=== PATIENT | female | born 1975 | race Caucasian/White ===

== ENCOUNTER 2016-06-13 16:24 | Emergency (ER) | payer OTHER ==
[~2016-06-13] VITALS: Ht 172.7 cm; Wt 68.0 kg
[~2016-06-13 16:24] MED LIST: OLAN5TAB3
[2016-06-13] MEDS ORDERED: LORAZEPAM INJ 2 MG/ML VIAL ONE (16:42)
[2016-06-13 16:58] LABS: BASOPHILS % (AUTO) 0.4 % (0.0-2.0); DIFF TOTAL % 100 %; EOSINOPHILS % (AUTO) 0.6 % (0.0-6.0); HEMATOCRIT 36 % (33-45); HEMOGLOBIN 12.1 g/dL (11.5-14.8); LYMPHOCYTES # (AUTO) 1.4 /CMM (0.8-4.8); LYMPHOCYTES % (AUTO) 22.6 % (20.0-44.0); MEAN CORPUSCULAR HEMOGLOBIN 29 PG (26.0-33.0); MEAN CORPUSCULAR HGB CONC 33 g/dl (31.0-36.0); MEAN CORPUSCULAR VOLUME 86 fL (82-100); MONOCYTES # (AUTO) 0.3 /CMM (0.1-1.30); MONOCYTES % (AUTO) 5.3 % (2.0-12.0); NEUTROPHILS # (AUTO) 4.3 /CMM (1.8-8.9); NEUTROPHILS % (AUTO) 71.1 % (43.0-81.0); PLATELET COUNT (AUTO) 370 /CMM (150-450); RED BLOOD CELL COUNT(AUTO) 4.21 MIL/uL (4.0-5.2)
[2016-06-13 17:00] LABS: ANION GAP 16 (5-14); CARBON DIOXIDE 25 mmol/L (21-32); CHLORIDE 105 mmol/L (98-107); CREATININE 0.7 mg/dL (0.6-1.3); GFR 94 mL/min (>60); GLUCOSE 111 mg/dL (74-106); POTASSIUM 3.4 mmol/L (3.5-5.1); SODIUM SERUM 143 mmol/L (136-145); UREA NITROGEN, BLOOD 10 mg/dL (7-18)
[2016-06-13] MEDS ORDERED: LORAZEPAM INJ 2 MG/ML VIAL IV ONE (17:00)
[2016-06-13 17:05] LABS: ALANINE AMINOTRANSFERASE 26 U/L (12-78); ALBUMIN 4.2 g/dL (3.4-5.0); ASPARTATE AMINOTRANSFERASE 24 U/L (15-37); BILIRUBIN,DIRECT 0.2 mg/dL (0.0-0.2); BILIRUBIN,TOTAL 0.9 mg/dL (0.2-1.0); INDIRECT BILIRUBIN 0.7 mg/dL (0.0-1.1); TOTAL PROTEIN, SERUM 7.3 g/dL (6.4-8.2)
[2016-06-13 17:06] LABS: ACETAMINOPHEN < 10 ug/ml (10-30); SALICYLATE < 2.8 mg/dL (2.8-20.0)
[2016-06-13 17:44] LABS: KETONES,URINE 15 (NEGATIVE); LEUKOCYTE ESTERASE ,URINE Negative (NEGATIVE)
[2016-06-13 17:46] LABS: ADD UA MICROSCOPIC YES
[2016-06-13 17:52] LABS: ADD URINE CULTURE NO; WBC,URINE 0-2 /HPF (0-3)
[2016-06-13 17:59] LABS: CANNABINOID, URINE NEGATIVE (NEGATIVE); PHENCYCLIDINE SCREEN,URINE NEGATIVE (NEGATIVE)
[2016-06-13 20:13] VITALS: BP 124/80
== END 2016-06-13 20:15 | disposition home or self-care (01) ==
LOC: ER 16:26
DX: F22 Delusional disorders (principal); F15.10 Other stimulant abuse, uncomplicated; F20.9 Schizophrenia, unspecified; R44.0 Auditory hallucinations; F17.200 Nicotine dependence, unspecified, uncomplicated
CPT/HCPCS: 36415; 76856; 80048; 80076; 80305; 80329; 81001; 84702; 84703; 85025; 93005; 96374; 99285; A4606; G0480 ×2; J2060; Z7610; 81000-TC; G6039-TC

== ENCOUNTER 2016-06-30 07:10 | Emergency (ER) | payer OTHER ==
[~2016-06-30] VITALS: Ht 177.8 cm; Wt 81.2 kg
[2016-06-30 07:14] VITALS: BP 143/89
[2016-06-30] MEDS ORDERED: IBUPROFEN 400 MG TABLET ONE (07:27)
[2016-06-30] MEDS ORDERED: IBUPROFEN 400 MG TABLET PO ONE (07:30)
== END 2016-06-30 07:32 | disposition home or self-care (01) ==
LOC: ER 07:12
DX: R51 Headache (principal); F15.10 Other stimulant abuse, uncomplicated; F20.9 Schizophrenia, unspecified; F17.200 Nicotine dependence, unspecified, uncomplicated
CPT/HCPCS: 99282; A4606; Z7610

== ENCOUNTER 2016-07-02 09:12 | Emergency (ER) | payer OTHER ==
[~2016-07-02] VITALS: Ht 177.8 cm; Wt 76.2 kg
[2016-07-02 14:02] LABS: CALCIUM, SERUM 8.4 mg/dL (8.5-10.1); CREATININE 0.6 mg/dL (0.6-1.3); POTASSIUM 3.8 mmol/L (3.5-5.1)
[2016-07-02 14:03] LABS: KETONES,URINE Negative (NEGATIVE); LEUKOCYTE ESTERASE ,URINE Negative (NEGATIVE)
[2016-07-02 14:05] LABS: ADD UA MICROSCOPIC YES
[2016-07-02 14:13] LABS: ALBUMIN 3.4 g/dL (3.4-5.0); BILIRUBIN,DIRECT 0.1 mg/dL (0.0-0.2); BILIRUBIN,TOTAL 0.3 mg/dL (0.2-1.0); INDIRECT BILIRUBIN 0.2 mg/dL (0.0-1.1); TOTAL PROTEIN, SERUM 6.3 g/dL (6.4-8.2)
[2016-07-02 14:15] LABS: WBC,URINE 0-2 /HPF (0-3)
[2016-07-02 14:16] LABS: ADD URINE CULTURE NO
[2016-07-02 14:23] LABS: BASOPHILS # (AUTO) 0.1 /CMM (0.0-0.2); BASOPHILS % (AUTO) 0.8 % (0.0-2.0); DIFF TOTAL % 100 %; EOSINOPHILS # (AUTO) 0.2 /CMM (0.0-0.7); EOSINOPHILS % (AUTO) 2.4 % (0.0-6.0); HEMATOCRIT 33 % (33-45); HEMOGLOBIN 11.1 g/dL (11.5-14.8); LYMPHOCYTES # (AUTO) 1.5 /CMM (0.8-4.8); LYMPHOCYTES % (AUTO) 22.8 % (20.0-44.0); MEAN CORPUSCULAR HEMOGLOBIN 29 PG (26.0-33.0); MEAN CORPUSCULAR HGB CONC 34 g/dl (31.0-36.0); MEAN CORPUSCULAR VOLUME 85 fL (82-100); MONOCYTES # (AUTO) 0.3 /CMM (0.1-1.30); MONOCYTES % (AUTO) 5.1 % (2.0-12.0); NEUTROPHILS # (AUTO) 4.4 /CMM (1.8-8.9); NEUTROPHILS % (AUTO) 68.9 % (43.0-81.0); PLATELET COUNT (AUTO) 350 /CMM (150-450); RED BLOOD CELL COUNT(AUTO) 3.89 MIL/uL (4.0-5.2); WHITE BLOOD COUNT (AUTO) 6.4 K/uL (4.3-11.0)
[2016-07-02 14:39] VITALS: BP 132/76
[2016-07-02 14:50] LABS: INR 0.94 (0.87-1.13); PROTHROMBIN TIME 10.2 SECS (9.5-12.7)
== END 2016-07-02 14:40 | disposition home or self-care (01) ==
LOC: ER 09:14
DX: N89.8 Other specified noninflammatory disorders of vagina (principal)
CPT/HCPCS: 36415; 80048; 80076; 81001; 84702; 84703; 85025; 85730; 86850; 87086; 99284; A4606; Z7610; 81000-TC

== ENCOUNTER 2016-07-09 08:20 | Emergency (ER) | payer OTHER ==
[~2016-07-09] VITALS: Ht 177.8 cm; Wt 77.1 kg
[2016-07-09 08:35] VITALS: BP 125/64
== END 2016-07-09 08:54 | disposition home or self-care (01) ==
LOC: ER 08:22
DX: L08.9 Local infection of the skin and subcutaneous tissue, unspecified (principal); F20.9 Schizophrenia, unspecified; B02.9 Zoster without complications; F17.200 Nicotine dependence, unspecified, uncomplicated
CPT/HCPCS: 99281; A4606; Z7610; Z7502

== ENCOUNTER 2017-04-08 21:01 | Emergency (ER) | payer OTHER ==
[~2017-04-08] VITALS: Ht 177.8 cm; Wt 72.6 kg
[2017-04-08 21:09] VITALS: BP 139/96
[2017-04-08] MEDS ORDERED: predniSONE 20 MG TABLET ONE (22:24)
[2017-04-08] MEDS ORDERED: diphenhydrAMINE HCL 50 MG CAPSULE ONE (22:24)
[2017-04-08] MEDS ORDERED: FAMOTIDINE (20 MG) 20 MG TABLET ONE (22:24)
[2017-04-08] MEDS ORDERED: IBUPROFEN 600 MG TABLET PO ONE (22:24)
[2017-04-08] MEDS: diphenhydrAMINE HCL 50 MG CAPSULE PO ONE (22:38)
[2017-04-08] MEDS: predniSONE 10 MG TABLET PO ONE (22:39)
[2017-04-08] MEDS: FAMOTIDINE (20 MG) 20 MG TABLET PO ONE (22:41)
[2017-04-08] MEDS: IBUPROFEN 600 MG TABLET PO ONE (22:42)
== END 2017-04-08 22:47 | disposition home or self-care (01) ==
LOC: ER 21:01
DX: L50.8 Other urticaria (principal); F28 Other psychotic disorder not due to a substance or known physiological condition; F20.9 Schizophrenia, unspecified; F15.10 Other stimulant abuse, uncomplicated; F17.200 Nicotine dependence, unspecified, uncomplicated; R00.0 Tachycardia, unspecified; Z98.82 Breast implant status
CPT/HCPCS: A4606; Q0163; Z7610

== ENCOUNTER 2017-04-28 07:33 | Emergency (ER) | payer OTHER ==
[~2017-04-28] VITALS: Ht 177.8 cm; Wt 77.6 kg
[2017-04-28 07:36] VITALS: BP 150/94
[2017-04-28] MEDS ORDERED: IBUPROFEN 600 MG TABLET PO ONE ×2 (07:58→08:00)
== END 2017-04-28 08:05 | disposition home or self-care (01) ==
LOC: ER 07:36
DX: K13.0 Diseases of lips (principal); B95.8 Unspecified staphylococcus as the cause of diseases classified elsewhere; F17.200 Nicotine dependence, unspecified, uncomplicated; Z98.82 Breast implant status
CPT/HCPCS: 99283; A4606; Z7610

== ENCOUNTER 2017-06-21 07:59 | Emergency (ER) | payer OTHER ==
[~2017-06-21] VITALS: Ht 177.8 cm; Wt 72.6 kg
[2017-06-21 08:08] VITALS: BP 129/99
== END 2017-06-21 09:41 | disposition home or self-care (01) ==
LOC: ER 08:00
DX: F42.4 Excoriation (skin-picking) disorder (principal); R11.0 Nausea; F20.9 Schizophrenia, unspecified; F17.200 Nicotine dependence, unspecified, uncomplicated; F10.10 Alcohol abuse, uncomplicated; Z98.82 Breast implant status
CPT/HCPCS: 99283; 99406; A4606; Z7610

== ENCOUNTER 2017-08-31 08:42 | Emergency (ER) | payer OTHER ==
[~2017-08-31] VITALS: Ht 177.8 cm; Wt 75.7 kg
[2017-08-31 08:50] VITALS: BP 134/81
[2017-08-31] MEDS ORDERED: diphenhydrAMINE HCL 25 MG CAPSULE PO ONE (09:30)
[2017-08-31] MEDS ORDERED: IBUPROFEN 600 MG TABLET PO ONE ×2 (09:30→09:32)
[2017-08-31] MEDS ORDERED: diphenhydrAMINE HCL 25 MG CAPSULE ONE (09:31)
== END 2017-08-31 10:06 | disposition home or self-care (01) ==
LOC: ER 08:48
DX: L98.9 Disorder of the skin and subcutaneous tissue, unspecified (principal); F20.9 Schizophrenia, unspecified; F10.10 Alcohol abuse, uncomplicated; F17.200 Nicotine dependence, unspecified, uncomplicated; Z41.1 Encounter for cosmetic surgery
CPT/HCPCS: 99283; A4606; Q0163; Z7610

== ENCOUNTER 2017-09-04 22:04 | Emergency (ER) | payer OTHER ==
[~2017-09-04] VITALS: Ht 177.8 cm; Wt 65.8 kg
[2017-09-04 22:20] VITALS: BP 135/68
== END 2017-09-04 23:07 | disposition home or self-care (01) ==
LOC: ER 22:06
DX: R21 Rash and other nonspecific skin eruption (principal); F10.10 Alcohol abuse, uncomplicated; F20.9 Schizophrenia, unspecified; F17.200 Nicotine dependence, unspecified, uncomplicated; Z41.1 Encounter for cosmetic surgery
CPT/HCPCS: 99283; A4606; Z7610

== ENCOUNTER 2017-10-11 14:18 | Emergency (ER) | payer OTHER ==
[~2017-10-11] VITALS: Ht 177.8 cm; Wt 78.0 kg
[2017-10-11 14:29] VITALS: BP 135/80
== END 2017-10-11 15:10 | disposition home or self-care (01) ==
LOC: ER 14:19
DX: M79.674 Pain in right toe(s) (principal); F20.9 Schizophrenia, unspecified; F17.200 Nicotine dependence, unspecified, uncomplicated; F10.10 Alcohol abuse, uncomplicated; Z98.82 Breast implant status
CPT/HCPCS: A4606; Z7610

== ENCOUNTER 2017-10-16 11:18 | Emergency (ER) | payer OTHER ==
[~2017-10-16] VITALS: Ht 177.8 cm; Wt 72.6 kg
[2017-10-16 11:22] VITALS: BP 174/107
== END 2017-10-16 12:15 | disposition home or self-care (01) ==
LOC: ER 11:21
DX: R23.8 Other skin changes (principal); R20.0 Anesthesia of skin; F20.9 Schizophrenia, unspecified; F17.200 Nicotine dependence, unspecified, uncomplicated; F10.10 Alcohol abuse, uncomplicated; Z98.86 Personal history of breast implant removal
CPT/HCPCS: A4606; Z7502; Z7610

== ENCOUNTER 2017-10-29 09:59 | Emergency (ER) | payer OTHER ==
[~2017-10-29] VITALS: Ht 182.9 cm; Wt 79.4 kg
[2017-10-29 10:06] VITALS: BP 131/83
== END 2017-10-29 10:15 | disposition home or self-care (01) ==
LOC: ER 10:01
DX: Z13.89 Encounter for screening for other disorder (principal); M79.674 Pain in right toe(s); F20.9 Schizophrenia, unspecified; F17.200 Nicotine dependence, unspecified, uncomplicated; B02.9 Zoster without complications; Z98.82 Breast implant status
CPT/HCPCS: 99281; A4606; Z7610; Z7502

== ENCOUNTER 2017-11-05 11:26 | Emergency (ER) | payer OTHER ==
[~2017-11-05] VITALS: Ht 182.9 cm; Wt 68.0 kg
[2017-11-05 11:34] VITALS: BP 137/105
== END 2017-11-05 11:50 | disposition home or self-care (01) ==
LOC: ER 11:28
DX: L73.8 Other specified follicular disorders (principal); F22 Delusional disorders; F20.9 Schizophrenia, unspecified; F17.200 Nicotine dependence, unspecified, uncomplicated; Z98.86 Personal history of breast implant removal
CPT/HCPCS: A4606; Z7610

== ENCOUNTER 2017-12-18 10:01 | Emergency (ER) | payer OTHER ==
[~2017-12-18] VITALS: Ht 177.8 cm; Wt 68.0 kg
[2017-12-18 10:13] VITALS: BP 164/99
--- NOTE | 2017-12-18 10:35 | NUR ---
DR COOK AT BEDSIDE FOR EVAL.
== END 2017-12-18 11:14 | disposition home or self-care (01) ==
LOC: ER 10:08
DX: N89.8 Other specified noninflammatory disorders of vagina (principal); F20.9 Schizophrenia, unspecified; Z41.1 Encounter for cosmetic surgery; F10.10 Alcohol abuse, uncomplicated; Y90.9 Presence of alcohol in blood, level not specified; F17.200 Nicotine dependence, unspecified, uncomplicated
CPT/HCPCS: 99283; A4606; Z7610

== ENCOUNTER 2018-01-31 07:19 | Emergency (ER) | payer OTHER ==
[~2018-01-31] VITALS: Ht 177.8 cm; Wt 79.4 kg
[2018-01-31 07:19] VITALS: BP 153/97
== END 2018-01-31 07:41 | disposition home or self-care (01) ==
LOC: ER 07:21
DX: R10.2 Pelvic and perineal pain (principal); F20.9 Schizophrenia, unspecified; F17.200 Nicotine dependence, unspecified, uncomplicated; Z98.82 Breast implant status
CPT/HCPCS: 99283; A4606; Z7610; Z7502

== ENCOUNTER 2018-02-23 13:57 | Emergency (ER) | payer OTHER ==
[~2018-02-23] VITALS: Ht 177.8 cm; Wt 77.7 kg
[2018-02-23 14:17] VITALS: BP 152/99
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
[2018-02-23] MEDS ORDERED: SULFAMETH/TRIMETH 800/160 MG 1 UDTAB TABLET PO ONE ×2 (15:00→15:10)
[2018-02-23] MEDS ORDERED: NAPROXEN 250 MG TABLET ONE (15:10)
[2018-02-23] MEDS: NAPROXEN 500 MG TABLET PO SCH ×2 (15:13→15:14)
--- NOTE | 2018-02-23 15:24 | NUR ---
TAYA TO PT. ACI WITH RX GIVEN. PT DISCHARGED HOME TO FOLLOW UP WITH PMD.ABRASION CLEANED AND DRESSED. PO MEDICATION G
== END 2018-02-23 15:27 | disposition home or self-care (01) ==
LOC: ER 14:02
DX: R22.1 Localized swelling, mass and lump, neck (principal); F20.9 Schizophrenia, unspecified; Z98.82 Breast implant status; Z60.2 Problems related to living alone
CPT/HCPCS: A4606; A6402; Z7610

== ENCOUNTER 2018-04-23 13:52 | Emergency (ER) | payer OTHER ==
[~2018-04-23] VITALS: Ht 180.3 cm; Wt 74.8 kg
[2018-04-23 14:16] VITALS: BP 134/74
[2018-04-23] MEDS ORDERED: IBUPROFEN 600 MG TABLET PO ONE ×2 (14:30)
== END 2018-04-23 15:43 | disposition home or self-care (01) ==
LOC: ER 13:57
DX: M79.672 Pain in left foot (principal); F20.9 Schizophrenia, unspecified; B02.9 Zoster without complications; F10.10 Alcohol abuse, uncomplicated; Y90.9 Presence of alcohol in blood, level not specified; Z41.1 Encounter for cosmetic surgery; Z60.2 Problems related to living alone
CPT/HCPCS: 73630-TC; A4606; Z7610

== ENCOUNTER 2018-05-26 10:47 | Emergency (ER) | payer OTHER ==
[~2018-05-26] VITALS: Ht 177.8 cm; Wt 79.4 kg
[2018-05-26 10:54] VITALS: BP 147/92
== END 2018-05-26 13:00 | disposition home or self-care (01) ==
LOC: ER 10:50
DX: S90.121A Contusion of right lesser toe(s) without damage to nail, initial encounter (principal); F20.9 Schizophrenia, unspecified; Z98.890 Other specified postprocedural states; Z60.2 Problems related to living alone; Z79.899 Other long term (current) drug therapy; W22.8XXA Striking against or struck by other objects, initial encounter; Y93.89 Activity, other specified; Y92.89 Other specified places as the place of occurrence of the external cause; Y99.8 Other external cause status
CPT/HCPCS: 73660-TC

== ENCOUNTER 2018-09-26 11:22 | Emergency (ER) ==
[~2018-09-26] VITALS: Ht 180.3 cm; Wt 81.6 kg
[2018-09-26 11:28] VITALS: BP 140/100
== END 2018-09-26 11:53 | disposition home or self-care (01) ==
LOC: ER 11:25
DX: M79.674 Pain in right toe(s) (principal); F10.10 Alcohol abuse, uncomplicated; Y90.9 Presence of alcohol in blood, level not specified; Z59.0 Homelessness; Z41.1 Encounter for cosmetic surgery

== ENCOUNTER 2018-11-08 08:28 | Emergency (ER) | payer OTHER ==
[~2018-11-08] VITALS: Ht 185.4 cm; Wt 74.8 kg
[2018-11-08 08:36] VITALS: BP 134/81
[2018-11-08] MEDS ORDERED: IBUPROFEN 600 MG TABLET PO ONE ×2 (09:20→09:30)
== END 2018-11-08 09:33 | disposition home or self-care (01) ==
LOC: ER 08:31
DX: S76.011A Strain of muscle, fascia and tendon of right hip, initial encounter (principal); Z98.890 Other specified postprocedural states; Z59.0 Homelessness; X58.XXXA Exposure to other specified factors, initial encounter; Y93.89 Activity, other specified; Y92.89 Other specified places as the place of occurrence of the external cause; Y99.8 Other external cause status
CPT/HCPCS: 73502

== ENCOUNTER 2018-11-16 10:21 | Emergency (ER) | payer OTHER ==
[~2018-11-16] VITALS: Ht 177.8 cm; Wt 81.2 kg
[2018-11-16 10:36] VITALS: BP 134/96
== END 2018-11-16 11:34 | disposition home or self-care (01) ==
LOC: ER 10:25
DX: B07.0 Plantar wart (principal); Z98.890 Other specified postprocedural states; Z59.0 Homelessness

== ENCOUNTER 2018-11-18 11:04 | Emergency (ER) | payer OTHER ==
[~2018-11-18] VITALS: Ht 177.8 cm; Wt 81.6 kg
[2018-11-18 11:05] VITALS: BP 130/90
== END 2018-11-18 11:37 | disposition home or self-care (01) ==
LOC: ER 11:04
DX: M79.674 Pain in right toe(s) (principal); Z98.890 Other specified postprocedural states; Z59.0 Homelessness
CPT/HCPCS: 82962-TC

== ENCOUNTER 2018-11-28 12:50 | Emergency (ER) | payer OTHER ==
[~2018-11-28] VITALS: Ht 177.8 cm; Wt 81.6 kg
[2018-11-28 13:04] VITALS: BP 124/88
== END 2018-11-28 13:53 | disposition home or self-care (01) ==
LOC: ER 12:53
DX: T25.231A Burn of second degree of right toe(s) (nail), initial encounter (principal); B35.3 Tinea pedis; F29 Unspecified psychosis not due to a substance or known physiological condition; F10.10 Alcohol abuse, uncomplicated; F14.10 Cocaine abuse, uncomplicated; Y90.9 Presence of alcohol in blood, level not specified; Z41.1 Encounter for cosmetic surgery; Z59.0 Homelessness; X08.8XXA Exposure to other specified smoke, fire and flames, initial encounter; Y93.89 Activity, other specified; Y92.89 Other specified places as the place of occurrence of the external cause; Y99.8 Other external cause status

== ENCOUNTER 2018-12-30 18:14 | Emergency (ER) | payer OTHER ==
[~2018-12-30] VITALS: Ht 177.8 cm; Wt 82.1 kg
[2018-12-30 18:35] VITALS: BP 165/99
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
[2018-12-30] MEDS ORDERED: TDAP [DIPH/PERTUSSIS/TET] 0.5 ML VIAL IM ONE (18:49)
[2018-12-30] MEDS: TDAP [DIPH/PERTUSSIS/TET] 0.5 ML VIAL IM ONE (18:53)
== END 2018-12-30 19:01 | disposition home or self-care (01) ==
LOC: ER 18:20
DX: S90.414A Abrasion, right lesser toe(s), initial encounter (principal); Z98.890 Other specified postprocedural states; Z59.0 Homelessness; W26.8XXA Contact with other sharp object(s), not elsewhere classified, initial encounter; Y93.89 Activity, other specified; Y92.89 Other specified places as the place of occurrence of the external cause; Y99.8 Other external cause status
CPT/HCPCS: 90715

== ENCOUNTER 2019-01-11 17:49 | Emergency (ER) | payer OTHER ==
[~2019-01-11] VITALS: Ht 177.8 cm; Wt 81.6 kg
[2019-01-11 17:50] VITALS: BP 140/89
[2019-01-11] MEDS ORDERED: ACETAMINOPHEN 325 MG TABLET PO ONE (18:30)
[2019-01-11] MEDS ORDERED: ACETAMINOPHEN 325 MG TABLET ONE (18:51)
== END 2019-01-11 19:22 | disposition home or self-care (01) ==
LOC: ER 17:49
DX: S00.83XA Contusion of other part of head, initial encounter (principal); F10.10 Alcohol abuse, uncomplicated; F20.9 Schizophrenia, unspecified; Z98.890 Other specified postprocedural states; Z60.2 Problems related to living alone; X58.XXXA Exposure to other specified factors, initial encounter; Y93.89 Activity, other specified; Y92.89 Other specified places as the place of occurrence of the external cause; Y99.8 Other external cause status; Y90.9 Presence of alcohol in blood, level not specified
CPT/HCPCS: 70450-TC; 70486-TC

== ENCOUNTER 2019-01-18 07:41 | Emergency (ER) | payer OTHER ==
[~2019-01-18] VITALS: Ht 177.8 cm; Wt 81.2 kg
[2019-01-18] MEDS ORDERED: LORAZEPAM 1 MG TABLET ONE (08:20)
[2019-01-18] MEDS ORDERED: LORAZEPAM 1 MG TABLET PO ONE (08:30)
--- NOTE | 2019-01-18 08:41 | NUR ---
PATIENT AWAKE ALERT AMBULATORY DEMEANDING UNABLE TO WAIT INSTRUCTED TO WAIT IN THE ROOM
--- NOTE | 2019-01-18 08:44 | NUR ---
DC HOME INTRUCTIONS GIVEN AGREES TO CALL PMD IN 2 DAYS VERBALIZED UNDERSTNDING
[2019-01-18 08:50] VITALS: BP 123/67
== END 2019-01-18 08:50 | disposition home or self-care (01) ==
LOC: ER 07:47
DX: F41.9 Anxiety disorder, unspecified (principal); F10.10 Alcohol abuse, uncomplicated; F14.10 Cocaine abuse, uncomplicated; Y90.9 Presence of alcohol in blood, level not specified; Z41.1 Encounter for cosmetic surgery; Z60.2 Problems related to living alone

== ENCOUNTER 2019-06-09 15:36 | Emergency (ER) | payer OTHER ==
[~2019-06-09] VITALS: Ht 177.8 cm; Wt 88.5 kg
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
[2019-06-09] MEDS ORDERED: IBUPROFEN 400 MG TABLET ONE (16:15)
[2019-06-09] MEDS ORDERED: IBUPROFEN 400 MG TABLET PO ONE (16:30)
[2019-06-09 16:33] VITALS: BP 145/81
--- NOTE | 2019-06-09 16:34 | NUR ---
Patient discharged to home in stable condition. Written and verbal after care instructions given. Patient verbalizes understanding of instruction.
== END 2019-06-09 16:34 | disposition home or self-care (01) ==
LOC: ER 15:46
DX: S13.4XXA Sprain of ligaments of cervical spine, initial encounter (principal); Z98.890 Other specified postprocedural states; Z88.6 Allergy status to analgesic agent; Z60.2 Problems related to living alone; Z79.899 Other long term (current) drug therapy; V49.59XA Passenger injured in collision with other motor vehicles in traffic accident, initial encounter; Y93.89 Activity, other specified; Y92.413 State road as the place of occurrence of the external cause; Y99.8 Other external cause status

== ENCOUNTER 2019-12-16 15:20 | Emergency (ER) | payer OTHER ==
[~2019-12-16] VITALS: Ht 177.8 cm; Wt 72.6 kg
--- NOTE | 2019-12-16 15:35 | NUR ---
Patient came in to the er c/o hearing voices denies SI or HI. On room air, breathing evenly and unlabored. connected to the monitor and pulse ox. kept comfortable, will continue to monitor accordingly.
--- NOTE | 2019-12-16 15:36 | NUR ---
dr ramirez at bedside for eval.
--- NOTE | 2019-12-16 16:47 | NUR ---
provided w/ vegetarian lunch tray.
[2019-12-16 16:49] VITALS: BP 140/77
--- NOTE | 2019-12-16 16:50 | NUR ---
Patient discharged to home in stable condition. Written and verbal after care instructions given. Patient verbalizes understanding of instruction.
== END 2019-12-16 16:50 | disposition home or self-care (01) ==
LOC: ER 15:31
DX: R44.0 Auditory hallucinations (principal); T43.295A Adverse effect of other antidepressants, initial encounter; Z98.890 Other specified postprocedural states; Z88.6 Allergy status to analgesic agent; Z60.2 Problems related to living alone; Z79.899 Other long term (current) drug therapy; Y92.89 Other specified places as the place of occurrence of the external cause

== ENCOUNTER 2020-05-31 12:10 | Emergency (ER) | payer OTHER ==
[~2020-05-31] VITALS: Ht 172.7 cm; Wt 70.3 kg
[2020-05-31 12:29] VITALS: BP 132/88
--- NOTE | 2020-05-31 12:33 | NUR ---
Pt eloped prior to discharge instructions
== END 2020-05-31 12:35 | disposition home or self-care (01) ==
LOC: ER 12:15
DX: R51.9 Headache, unspecified (principal); Z98.890 Other specified postprocedural states; Z88.6 Allergy status to analgesic agent; Z60.2 Problems related to living alone; Z79.899 Other long term (current) drug therapy

== ENCOUNTER 2021-01-06 13:41 | Emergency (ER) | payer OTHER ==
[~2021-01-06] VITALS: Ht 172.7 cm; Wt 68.0 kg
--- NOTE | 2021-01-06 13:50 | NUR ---
THE PATIENT BIBS FOR "I NEED PSYCH MEDS. I'M DEPRESSED AND KEEP TALKING OUT LOUD". ALERT AND ORIENTED X4. DENIES SI/HI. RESPIRATION REGULAR AND UNLABORED. DENIES PAIN. WILL CONTINUE TO MONITOR THE PATIENT.
[2021-01-06] MEDS ORDERED: SERT50TA PO (15:16)
--- NOTE | 2021-01-06 15:23 | NUR ---
Patient discharged to home in stable condition. Written and verbal after care instructions given. Patient verbalizes understanding of instruction.
[2021-01-06 15:24] VITALS: BP 122/67
== END 2021-01-06 15:24 | disposition home or self-care (01) ==
LOC: ER 13:44
DX: F41.9 Anxiety disorder, unspecified (principal); F10.10 Alcohol abuse, uncomplicated; Y90.9 Presence of alcohol in blood, level not specified; Z41.1 Encounter for cosmetic surgery; Z88.6 Allergy status to analgesic agent; Z88.5 Allergy status to narcotic agent; Z60.2 Problems related to living alone

== ENCOUNTER 2021-01-15 10:08 | Emergency (ER) | payer OTHER ==
[~2021-01-15] VITALS: Ht 177.8 cm; Wt 67.6 kg
[2021-01-15 10:08] VITALS: BP 115/82
[~2021-01-15 10:08] MED LIST changes: +SERT50TA PO
--- NOTE | 2021-01-15 10:17 | NUR ---
TO ER BED 2, C/O BILATERAL LOWER EXTREMITY NUMBNESS FOR 1 MONTH, AAOX4, BREATHING EVEN AND UNLABORED
== END 2021-01-15 10:19 | disposition home or self-care (01) ==
LOC: ER 10:13
DX: L84 Corns and callosities (principal); Z98.890 Other specified postprocedural states; Z88.6 Allergy status to analgesic agent; Z60.2 Problems related to living alone; Z79.899 Other long term (current) drug therapy

== ENCOUNTER 2021-01-20 17:20 | Emergency (ER) | payer OTHER ==
[~2021-01-20] VITALS: Ht 170.2 cm; Wt 71.2 kg
--- NOTE | 2021-01-20 17:39 | NUR ---
PATIENT BIB SELF R HIP PAIN X 1 MON. DENIES INJURY. NO RESPIRATORY DISTRESS NOTED. PATIENT ABLE TO AMBULATE. PATIENT ALERT AND ORIENTED X4. AWAITING MD WANG.
--- NOTE | 2021-01-20 17:52 | NUR ---
URINE COLLECTED AND SENT TO LAB
[2021-01-20] MEDS ORDERED: IBUPROFEN 600 MG TABLET ONE (17:56)
[2021-01-20] MEDS ORDERED: IBUPROFEN 600 MG TABLET PO ONE (18:00)
[2021-01-20] MEDS ORDERED: IBUP-1955 PO (19:04)
--- NOTE | 2021-01-20 19:13 | NUR ---
Patient discharged to home in stable condition. rx Written and verbal after care instructions given. Patient verbalizes understanding of instruction. pt ambulatory with a steady gait. pt a/ox4
[2021-01-20 19:15] VITALS: BP 128/87
== END 2021-01-20 19:16 | disposition home or self-care (01) ==
LOC: ER 17:45
DX: M25.551 Pain in right hip (principal); F10.10 Alcohol abuse, uncomplicated; Y90.9 Presence of alcohol in blood, level not specified; Z41.1 Encounter for cosmetic surgery; Z88.6 Allergy status to analgesic agent; Z88.5 Allergy status to narcotic agent; Z60.2 Problems related to living alone; Z79.899 Other long term (current) drug therapy
CPT/HCPCS: 73502; 84703-TC

== ENCOUNTER 2021-03-07 15:49 | Emergency (ER) | payer OTHER ==
[~2021-03-07] VITALS: Ht 177.8 cm; Wt 70.3 kg
[~2021-03-07 15:49] MED LIST changes: +IBUP-1955 PO; -SERT50TA PO
[2021-03-07 15:56] VITALS: BP 132/65
[2021-03-07] MEDS ORDERED: SERT50TA PO (16:31)
--- NOTE | 2021-03-07 17:00 | NUR ---
Patient discharged to home in stable condition. Written and verbal after care instructions given. Patient verbalizes understanding of instruction.
== END 2021-03-07 17:00 | disposition home or self-care (01) ==
LOC: ER 15:52
DX: Z76.0 Encounter for issue of repeat prescription (principal); Z98.890 Other specified postprocedural states; Z88.6 Allergy status to analgesic agent; Z60.2 Problems related to living alone; Z79.899 Other long term (current) drug therapy

== ENCOUNTER 2021-05-03 22:23 | Emergency (ER) | payer OTHER ==
[~2021-05-03] VITALS: Ht 177.8 cm; Wt 68.0 kg
[~2021-05-03 22:23] MED LIST changes: +SERT50TA PO
[2021-05-03 22:41] VITALS: BP 147/72
== END 2021-05-04 00:20 | disposition home or self-care (01) ==
LOC: ER 22:23
DX: R51.9 Headache, unspecified (principal); Z98.890 Other specified postprocedural states; Z88.6 Allergy status to analgesic agent; Z60.2 Problems related to living alone; Z79.899 Other long term (current) drug therapy
CPT/HCPCS: 70450-TC

== ENCOUNTER 2021-05-19 09:29 | Emergency (ER) | payer OTHER ==
[~2021-05-19] VITALS: Ht 185.4 cm; Wt 68.0 kg
[2021-05-19 09:55] VITALS: BP 129/88
[2021-05-19] MEDS ORDERED: SERT25TA PO (10:08)
== END 2021-05-19 10:44 | disposition home or self-care (01) ==
LOC: ER 09:33
DX: F41.9 Anxiety disorder, unspecified (principal); Z76.0 Encounter for issue of repeat prescription; Z98.890 Other specified postprocedural states; Z88.6 Allergy status to analgesic agent; Z60.2 Problems related to living alone; Z79.899 Other long term (current) drug therapy

== ENCOUNTER 2021-05-22 09:04 | Emergency (ER) | payer OTHER ==
[~2021-05-22] VITALS: Ht 177.8 cm; Wt 71.7 kg
[~2021-05-22 09:04] MED LIST changes: +SERT25TA PO
[2021-05-22 09:19] VITALS: BP 136/91
[2021-05-22] MEDS ORDERED: CLOB15OI3 TP (09:34)
[2021-05-22] MEDS ORDERED: diphenhydrAMINE HCL 50 MG CAPSULE ONE (09:41)
[2021-05-22] MEDS ORDERED: predniSONE 20 MG TABLET ONE (09:41)
--- NOTE | 2021-05-22 09:46 | NUR ---
Patient discharged to home in stable condition. Written and verbal after care instructions given. Patient verbalizes understanding of instruction.
[2021-05-22] MEDS ORDERED: diphenhydrAMINE HCL 50 MG CAPSULE PO ONE (10:00)
[2021-05-22] MEDS ORDERED: predniSONE 10 MG TABLET PO ONE (10:00)
== END 2021-05-22 09:46 | disposition home or self-care (01) ==
LOC: ER 09:08
DX: L21.0 Seborrhea capitis (principal); Z98.890 Other specified postprocedural states; Z88.6 Allergy status to analgesic agent; Z60.2 Problems related to living alone; Z79.899 Other long term (current) drug therapy
CPT/HCPCS: 99283; J7512 ×2; Q0163

== ENCOUNTER 2021-06-08 06:13 | Emergency (ER) | payer OTHER ==
[~2021-06-08] VITALS: Ht 177.8 cm; Wt 72.1 kg
[~2021-06-08 06:13] MED LIST changes: +CLOB15OI3 TP
--- NOTE | 2021-06-08 06:45 | NUR ---
PT BIBS FROM HOME FOR C/O "I'M ANXIOUS, I WANNA KNOW IF I'M OR NOT" PT A/OX4. TOLERATING R/A WELL WITH NO SOB.
--- NOTE | 2021-06-08 06:48 | NUR ---
PT SEEN BY DR. LAW HENDERSON
--- NOTE | 2021-06-08 06:51 | NUR ---
URINE COLLECTED AND SENT TO LAB
[2021-06-08] MEDS ORDERED: SUMA100T PO (08:54)
[2021-06-08] MEDS ORDERED: IBUP-1957 PO (08:54)
[2021-06-08] MEDS ORDERED: PROCHLORPERAZINE EDISYLATE 10 MG/2 ML VIAL ONE (08:57)
[2021-06-08] MEDS ORDERED: SUMATRIPTAN SUCCINATE 6 MG/0.5 ML VIAL SQ ONE (08:57)
[2021-06-08] MEDS ORDERED: KETOROLAC TROMETHAMINE INJ 30 MG/ML VIAL ONE (08:58)
[2021-06-08] MEDS: KETOROLAC TROMETHAMINE INJ 30 MG/ML VIAL IM ONE (09:08)
[2021-06-08] MEDS: PROCHLORPERAZINE EDISYLATE 10 MG/2 ML VIAL IM ONE (09:08)
[2021-06-08] MEDS: SUMATRIPTAN SUCCINATE 6 MG/0.5 ML VIAL SQ ONE (09:08)
--- NOTE | 2021-06-08 09:24 | NUR ---
Patient discharged to home in stable condition. Written and verbal after care instructions given. Patient verbalizes understanding of instruction.Patient was given printed prescriptions.
[2021-06-08 09:25] VITALS: BP 138/75
== END 2021-06-08 09:26 | disposition home or self-care (01) ==
LOC: ER 06:13
DX: Z32.02 Encounter for pregnancy test, result negative (principal); R51.9 Headache, unspecified; Z98.890 Other specified postprocedural states; Z88.6 Allergy status to analgesic agent; Z59.00 Homelessness unspecified; Z79.899 Other long term (current) drug therapy
CPT/HCPCS: 84703; 96372 ×2; 99284; J0780; J1885; J3030

== ENCOUNTER 2021-07-20 14:27 | Emergency (ER) | payer OTHER ==
[~2021-07-20] VITALS: Ht 177.8 cm; Wt 74.4 kg
[~2021-07-20 14:27] MED LIST changes: +IBUP-1957 PO; +SUMA100T PO
--- NOTE | 2021-07-20 14:39 | NUR ---
TO ER BED 14. HEADACHE "CRACKING SOUND" AND "BLOOD TASTE TO ROOF OF MOUTH X 3 MONTHS DENIES ANY RECENT HEAD INJURY.
--- NOTE | 2021-07-20 16:22 | NUR ---
APS Report made for self-neglect regarding medical care. APS Intake #[id number]
--- NOTE | 2021-07-20 16:30 | NUR ---
PT SEEN AND EVALUATED BY TALA MCFARLANE. VERBALLY DISCHARGE IN STABLE CONDITION.
[2021-07-20 17:16] VITALS: BP 135/84
== END 2021-07-20 16:30 | disposition home or self-care (01) ==
LOC: ER 14:28
DX: F23 Brief psychotic disorder (principal); Z59.00 Homelessness unspecified; Z79.1 Long term (current) use of non-steroidal anti-inflammatories (NSAID); Z79.899 Other long term (current) drug therapy; Z98.82 Breast implant status; Z88.6 Allergy status to analgesic agent; Z88.5 Allergy status to narcotic agent; Z86.14 Personal history of Methicillin resistant Staphylococcus aureus infection; Z86.19 Personal history of other infectious and parasitic diseases

== ENCOUNTER 2021-07-31 09:59 | Emergency (ER) | payer OTHER ==
[~2021-07-31] VITALS: Ht 177.8 cm; Wt 76.7 kg
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
--- NOTE | 2021-07-31 10:41 | NUR ---
SEEN AND EXAMINED BY .
--- NOTE | 2021-07-31 10:50 | NUR ---
URINE SPECIMEN COLLECTED AND SENT TO LAB.
--- NOTE | 2021-07-31 10:53 | NUR ---
ER PHLEB AT BEDSIDE FOR BLOOD DRAW.
[2021-07-31 11:05] LABS: BASOPHILS % (AUTO) 1.2 % (0.0-2.0); EOSINOPHILS % (AUTO) 1.8 % (0.0-6.0); HEMATOCRIT 30 % (33-45); HEMOGLOBIN 9.2 g/dL (11.5-14.8); LYMPHOCYTES # (AUTO) 1.1 K/uL (0.8-4.8); LYMPHOCYTES % (AUTO) 35.5 % (20.0-44.0); MEAN CORPUSCULAR HGB CONC 30 g/dl (31.0-36.0); MEAN CORPUSCULAR VOLUME 65 fL (82-100); MONOCYTES # (AUTO) 0.2 K/uL (0.1-1.30); MONOCYTES % (AUTO) 6.6 % (2.0-12.0); NEUTROPHILS # (AUTO) 1.7 K/uL (1.8-8.9); NEUTROPHILS % (AUTO) 54.9 % (43.0-81.0); PLATELET COUNT (AUTO) 406 K/uL (150-450); RED BLOOD CELL COUNT(AUTO) 4.68 MIL/uL (4.0-5.2); WHITE BLOOD COUNT (AUTO) 3.2 K/uL (4.3-11.0)
[2021-07-31 11:22] LABS: BILIRUBIN,URINE NEGATIVE (NEGATIVE); COLOR,URINE YELLOW (YELLOW); LEUKOCYTE ESTERASE ,URINE NEGATIVE (NEGATIVE); NITRITE, URINE NEGATIVE (NEGATIVE); PROTEIN,URINE NEGATIVE (NEGATIVE); UGLUCOSE NEGATIVE (NEGATIVE); UROBILINOGEN,URINE 0.2 EU/dL (0.2)
[2021-07-31 11:31] LABS: ALANINE AMINOTRANSFERASE 26 U/L (12-78); ALBUMIN 4.1 g/dL (3.4-5.0); ALCOHOL, BLOOD < 3 mg/dL (0-0); ALKALINE PHOSPHATASE 52 U/L (46-116); ASPARTATE AMINOTRANSFERASE 20 U/L (15-37); BILIRUBIN,DIRECT 0.2 mg/dL (0.0-0.2); BILIRUBIN,TOTAL 0.7 mg/dL (0.2-1.0); CALCIUM, SERUM 9.1 mg/dL (8.5-10.1); CARBON DIOXIDE 29 mmol/L (21-32); CHLORIDE 105 mmol/L (98-107); CREATININE 0.7 mg/dL (0.6-1.3); GLUCOSE 87 mg/dL (74-106); POTASSIUM 3.6 mmol/L (3.5-5.1); SODIUM SERUM 139 mmol/L (136-145); TOTAL PROTEIN, SERUM 7.3 g/dL (6.4-8.2); UREA NITROGEN, BLOOD 10 mg/dL (7-18)
[2021-07-31 11:34] LABS: ACETAMINOPHEN 0 ug/ml (10-30)
[2021-07-31 11:36] LABS: RBC,URINE NONE SEEN /HPF (0-2); WBC,URINE 0-2 /HPF (0-3)
[2021-07-31 11:37] LABS: BACTERIA,URINE None seen /HPF (None Seen); SQUAMOUS EPITHELIAL CELL,UR 0-2 /HPF (None Seen); YEAST,URINE Few /HPF (None Seen)
[2021-07-31 12:39] LABS: EOSINOPHILS % (MANUAL) 3 % (0-4); LYMPHOCYTES % (MANUAL) 35 % (16-48); METAMYELOCYTES % 2 % (0-0); MONOCYTES % (MANUAL) 5 % (0-11.0); MYELOCYTES % 2 % (0-0); NEUTROPHILS % (MANUAL) 53 (42-76)
[2021-07-31 13:30] VITALS: BP 128/71
--- NOTE | 2021-07-31 14:00 | NUR ---
Patient eloped from facility. ER MD notified.
== END 2021-07-31 14:00 | disposition left against medical advice (07) ==
LOC: ER 10:01
DX: R46.1 Bizarre personal appearance (principal); Z86.19 Personal history of other infectious and parasitic diseases; Z98.82 Breast implant status; Z88.6 Allergy status to analgesic agent; Z88.5 Allergy status to narcotic agent; Z60.2 Problems related to living alone; Z79.1 Long term (current) use of non-steroidal anti-inflammatories (NSAID); Z79.899 Other long term (current) drug therapy
CPT/HCPCS: 36415; 80048-TC; 80076-TC; 81001; 85025-TC; G0480

== ENCOUNTER 2021-11-07 19:17 | Emergency (ER) | payer OTHER ==
[~2021-11-07] VITALS: Ht 177.8 cm; Wt 71.7 kg
[2021-11-07 19:30] VITALS: BP 144/74
== END 2021-11-07 20:58 | disposition home or self-care (01) ==
LOC: ER 19:20
DX: F32.A Depression, unspecified (principal); Z59.00 Homelessness unspecified; Z98.86 Personal history of breast implant removal; Z88.8 Allergy status to other drugs, medicaments and biological substances; Z60.2 Problems related to living alone; Z79.899 Other long term (current) drug therapy

== ENCOUNTER 2021-11-27 20:34 | Emergency (ER) | payer OTHER ==
[~2021-11-27] VITALS: Ht 177.8 cm; Wt 74.8 kg
[2021-11-27 20:34] VITALS: BP 157/97
[2021-11-27] MEDS ORDERED: KETOROLAC TROMETHAMINE INJ 30 MG/ML VIAL ONE (21:07)
[2021-11-27] MEDS: KETOROLAC TROMETHAMINE INJ 60 MG/2 ML VIAL IM ONE (21:10)
== END 2021-11-27 21:20 | disposition home or self-care (01) ==
LOC: ER 20:36
DX: R51.9 Headache, unspecified (principal); Z98.890 Other specified postprocedural states; Z88.6 Allergy status to analgesic agent; Z60.2 Problems related to living alone; Z79.899 Other long term (current) drug therapy
CPT/HCPCS: 99283; 96372; J1885

== ENCOUNTER 2022-01-01 09:26 | Emergency (ER) | payer OTHER ==
[~2022-01-01] VITALS: Ht 177.8 cm; Wt 72.1 kg
[2022-01-01 09:41] VITALS: BP 145/121
--- NOTE | 2022-01-01 09:42 | NUR ---
BIBS W/ C/O ANXIETY X1WK; PT WANTS MED REFILL.
[2022-01-01] MEDS ORDERED: OLAN5TAB3 PO (09:50)
--- NOTE | 2022-01-01 10:43 | NUR ---
Patient discharged to home in stable condition. Written and verbal after care instructions given. Patient verbalizes understanding of instruction.
== END 2022-01-01 10:44 | disposition home or self-care (01) ==
LOC: ER 09:30
DX: F29 Unspecified psychosis not due to a substance or known physiological condition (principal); Z76.0 Encounter for issue of repeat prescription; F41.9 Anxiety disorder, unspecified; Z98.890 Other specified postprocedural states; Z88.6 Allergy status to analgesic agent; Z60.2 Problems related to living alone; Z79.899 Other long term (current) drug therapy

== ENCOUNTER 2022-01-07 18:45 | Emergency (ER) | payer OTHER ==
[~2022-01-07] VITALS: Ht 177.8 cm; Wt 70.3 kg
[~2022-01-07 18:45] MED LIST changes: +OLAN5TAB3 PO
[2022-01-07 18:48] VITALS: BP 125/86
--- NOTE | 2022-01-07 18:48 | NUR ---
DYSURIA X 7 DAYS. PT A/OX4. TOLERATING R/A WELL WITH NO SOB. AMB WITH NO STEADY GAIT. SAFETY MEASURES IN PLACE.
--- NOTE | 2022-01-07 18:50 | NUR ---
URINE SAMPLE SENT TO LAB
[2022-01-07 19:40] LABS: BILIRUBIN,URINE NEGATIVE (NEGATIVE); COLOR,URINE YELLOW (YELLOW); LEUKOCYTE ESTERASE ,URINE NEGATIVE (NEGATIVE); NITRITE, URINE NEGATIVE (NEGATIVE); PH,URINE 6.5 (5.0-8.0); PROTEIN,URINE NEGATIVE (NEGATIVE); UGLUCOSE NEGATIVE (NEGATIVE)
[2022-01-07 20:15] LABS: BACTERIA,URINE 2+ /HPF (None Seen); RBC,URINE 0-2 /HPF (0-2); WBC,URINE 0-2 /HPF (0-3)
[2022-01-07 20:16] LABS: MUCUS,URINE Few /LPF (None Seen)
[2022-01-07] MEDS ORDERED: NITR100C6 PO (20:50)
--- NOTE | 2022-01-07 20:54 | NUR ---
Patient discharged to home in stable condition. Written and verbal after care instructions given. Patient verbalizes understanding of instruction.
== END 2022-01-07 20:54 | disposition home or self-care (01) ==
LOC: ER 18:48
DX: R30.0 Dysuria (principal); Z41.1 Encounter for cosmetic surgery; Z88.6 Allergy status to analgesic agent; Z60.2 Problems related to living alone
CPT/HCPCS: 81001; 87086-TC; 87186-TC

== ENCOUNTER 2022-02-28 23:41 | Emergency (ER) | payer OTHER ==
[~2022-02-28] VITALS: Ht 177.8 cm; Wt 72.6 kg
[~2022-02-28 23:41] MED LIST changes: +NITR100C6 PO
--- NOTE | 2022-03-01 01:33 | NUR ---
Patient discharged to home in stable condition. Written and verbal after care instructions given. Patient verbalizes understanding of instruction.
--- NOTE | 2022-03-01 01:33 | NUR ---
Patient discharged to home in stable condition. Written and verbal after care instructions given. Patient verbalizes understanding of instruction.
[2022-03-01 01:34] VITALS: BP 140/70
== END 2022-03-01 01:34 | disposition home or self-care (01) ==
LOC: ER 23:42
DX: S09.90XA Unspecified injury of head, initial encounter (principal); F41.9 Anxiety disorder, unspecified; Z98.82 Breast implant status; Z88.8 Allergy status to other drugs, medicaments and biological substances; Z60.2 Problems related to living alone; Z79.899 Other long term (current) drug therapy; W22.8XXA Striking against or struck by other objects, initial encounter; Y93.89 Activity, other specified; Y92.89 Other specified places as the place of occurrence of the external cause; Y99.8 Other external cause status
CPT/HCPCS: 70450-TC

== ENCOUNTER 2022-03-03 10:25 | Emergency (ER) | payer OTHER ==
[~2022-03-03] VITALS: Ht 177.8 cm; Wt 75.7 kg
[2022-03-03 10:38] VITALS: BP 151/104
--- NOTE | 2022-03-03 10:38 | NUR ---
R foot pain x 3 days, denies any recent injury. foot fissures noted
[2022-03-03] MEDS ORDERED: IBUP-1955 PO (11:57)
[2022-03-03] MEDS ORDERED: IBUPROFEN 600 MG TABLET ONE (12:00)
[2022-03-03] MEDS: IBUPROFEN 600 MG TABLET PO ONE (12:01)
--- NOTE | 2022-03-03 12:10 | NUR ---
Patient discharged to home in stable condition. Written and verbal after care instructions given. Patient verbalizes understanding of instruction.
== END 2022-03-03 12:47 | disposition home or self-care (01) ==
LOC: ER 10:29
DX: M79.671 Pain in right foot (principal); F41.9 Anxiety disorder, unspecified; Z98.82 Breast implant status; Z88.8 Allergy status to other drugs, medicaments and biological substances; Z60.2 Problems related to living alone; Z79.899 Other long term (current) drug therapy
CPT/HCPCS: 73630-TC

== ENCOUNTER 2022-03-07 07:03 | Emergency (ER) | payer OTHER ==
[~2022-03-07] VITALS: Ht 177.8 cm; Wt 77.6 kg
[2022-03-07 07:14] VITALS: BP 164/88
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
--- NOTE | 2022-03-07 07:19 | NUR ---
DR. ZOIE HENDERSON AT PT'S BEDSIDE FOR EVAL
[2022-03-07] MEDS ORDERED: LIDOCAINE HCL/PF 1% 30 ML VIAL TP ONE (07:30)
[2022-03-07] MEDS ORDERED: IBUPROFEN 600 MG TABLET PO ONE (07:30)
--- NOTE | 2022-03-07 07:51 | NUR ---
PT OFFERED MOTRIN INDICATED FOR PAIN BUT PT REFUSED AT THIS TIME.
[2022-03-07] MEDS ORDERED: CEPH500C2 PO (07:52)
--- NOTE | 2022-03-07 07:54 | NUR ---
DR LINO SPEAKING W/ PT; PER PT, DID NOT WANT TO DO I&D AT THIS TIME.
[2022-03-07] MEDS ORDERED: BACI/NEOM/POLY B OINT PKT 1 UDPKT PACKET TP ONE (08:00)
--- NOTE | 2022-03-07 08:09 | NUR ---
Patient discharged to home in stable condition. Written and verbal after care instructions given. Patient verbalizes understanding of instruction.
--- NOTE | 2022-03-07 08:15 | NUR ---
Patient discharged to home in stable condition. Written and verbal after care instructions given. Patient verbalizes understanding of instruction.
== END 2022-03-07 08:15 | disposition home or self-care (01) ==
LOC: ER 07:03
DX: L03.011 Cellulitis of right finger (principal); F41.9 Anxiety disorder, unspecified; Z98.86 Personal history of breast implant removal; Z88.8 Allergy status to other drugs, medicaments and biological substances; Z60.2 Problems related to living alone; Z79.899 Other long term (current) drug therapy
CPT/HCPCS: J3490

== ENCOUNTER 2022-03-08 19:46 | Emergency (ER) | payer OTHER ==
[~2022-03-08 19:46] MED LIST changes: +CEPH500C2 PO
--- NOTE | 2022-03-08 20:15 | NUR ---
CALLED TO TRIAGE NO ANSWER
--- NOTE | 2022-03-08 20:45 | NUR ---
PATIENT NOT IN WAITING ROOM
== END 2022-03-08 21:06 | disposition left against medical advice (07) ==
LOC: ER 19:52
DX: Z53.21 Procedure and treatment not carried out due to patient leaving prior to being seen by health care provider (principal)

== ENCOUNTER 2022-03-09 10:38 | Emergency (ER) | payer OTHER ==
[~2022-03-09] VITALS: Ht 177.8 cm; Wt 72.6 kg
[2022-03-09 10:47] VITALS: BP 102/60
--- NOTE | 2022-03-09 10:50 | NUR ---
Received pt 46yrs female came from home [facility] [address]
--- NOTE | 2022-03-09 11:00 | NUR ---
I&D DONE ON RT MIDLE FINGER BY DR. WATERS AT BED SIDE
--- NOTE | 2022-03-09 11:30 | NUR ---
CLEAN AND DRESSING APPLED BY EDT AT BED SIDE NO DRANNGE
--- NOTE | 2022-03-09 12:03 | NUR ---
Patient discharged to home in stable condition. Written and verbal after care instructions given. Patient verbalizes understanding of instruction.
== END 2022-03-09 12:09 | disposition home or self-care (01) ==
LOC: ER 11:48
DX: L03.011 Cellulitis of right finger (principal); F41.9 Anxiety disorder, unspecified; Z98.86 Personal history of breast implant removal; Z88.8 Allergy status to other drugs, medicaments and biological substances; Z60.2 Problems related to living alone; Z79.899 Other long term (current) drug therapy
CPT/HCPCS: 10060; 99282; A6407

== ENCOUNTER 2022-03-21 14:59 | Emergency (ER) | payer OTHER ==
[~2022-03-21] VITALS: Ht 177.8 cm; Wt 74.8 kg
--- NOTE | 2022-03-21 15:36 | NUR ---
URINE SAMPLE COLLECTED AND SENT TO LAB
[2022-03-21 16:32] LABS: BILIRUBIN,URINE NEGATIVE (NEGATIVE); COLOR,URINE YELLOW (YELLOW); LEUKOCYTE ESTERASE ,URINE NEGATIVE (NEGATIVE); NITRITE, URINE NEGATIVE (NEGATIVE); PROTEIN,URINE NEGATIVE (NEGATIVE); UGLUCOSE NEGATIVE (NEGATIVE); UROBILINOGEN,URINE 0.2 EU/dL (0.2)
[2022-03-21 16:36] LABS: BACTERIA,URINE Rare /HPF (None Seen); RBC,URINE 0-2 /HPF (0-2); SQUAMOUS EPITHELIAL CELL,UR Few /HPF (None Seen)
--- NOTE | 2022-03-21 17:18 | NUR ---
[facility] COLLECTED AND SENT
[2022-03-21] MEDS ORDERED: CEFTRIAXONE 500 MG VIAL IM ONE (17:30)
[2022-03-21] MEDS ORDERED: DOXYCYCLINE HYCLATE (100 MG) 100 MG TABLET PO ONE (17:30)
[2022-03-21] MEDS ORDERED: DOXYCYCLINE HYCLATE (100 MG) 100 MG TABLET ONE (17:36)
[2022-03-21] MEDS ORDERED: CEFTRIAXONE 500 MG VIAL ONE (17:36)
--- NOTE | 2022-03-21 17:50 | NUR ---
PT'S CONTACT INFO: [phone]
--- NOTE | 2022-03-21 18:00 | NUR ---
ROCEPHIN IM AND VIBRAMYCIN PO GIVEN INDICATED, MASHA WELL
[2022-03-21] MEDS ORDERED: DOXY-326 PO (18:24)
--- NOTE | 2022-03-21 18:42 | NUR ---
Patient discharged to home in stable condition. Written and verbal after care instructions given. Patient verbalizes understanding of instruction.
[2022-03-21 18:44] VITALS: BP 144/89
== END 2022-03-21 18:44 | disposition home or self-care (01) ==
LOC: ER 15:02
DX: A64 Unspecified sexually transmitted disease (principal); L84 Corns and callosities; R07.81 Pleurodynia; F32.A Depression, unspecified; Z88.8 Allergy status to other drugs, medicaments and biological substances; Z59.02 Unsheltered homelessness; Z79.899 Other long term (current) drug therapy
CPT/HCPCS: 99284; 71045; 96372; 84703; 81001; 87210; 87491; 87591; J0696

== ENCOUNTER 2022-04-15 13:52 | Emergency (ER) | payer OTHER ==
[~2022-04-15] VITALS: Ht 177.8 cm; Wt 77.6 kg
[~2022-04-15 13:52] MED LIST changes: +DOXY-326 PO
--- NOTE | 2022-04-15 15:00 | NUR ---
PT SEEN BY DR CHAMORRO FOR EVAL
[2022-04-15] MEDS ORDERED: SERT25TA PO (15:01)
--- NOTE | 2022-04-15 15:20 | NUR ---
Patient discharged to home in stable condition. Written and verbal after care instructions given. Patient verbalizes understanding of instruction. Prescription given to patient for medication refill, patient verbalized understanding of how and where to seed cone picker prescription. Patient ambulated out of hospital without incident.
[2022-04-15 15:21] VITALS: BP 122/66
== END 2022-04-15 15:22 | disposition home or self-care (01) ==
LOC: ER 13:59
DX: Z76.0 Encounter for issue of repeat prescription (principal); F32.A Depression, unspecified; Z88.8 Allergy status to other drugs, medicaments and biological substances; Z79.899 Other long term (current) drug therapy

== ENCOUNTER 2022-04-30 20:22 | Emergency (ER) | payer OTHER ==
--- NOTE | 2022-04-30 21:00 | NUR ---
CALLED TO TRIAGE , NO ANSWER
--- NOTE | 2022-04-30 21:25 | NUR ---
CALLED FOR TRIAGE, NO ANSWER
== END 2022-04-30 21:27 | disposition left against medical advice (07) ==
LOC: ER 20:25
DX: Z53.21 Procedure and treatment not carried out due to patient leaving prior to being seen by health care provider (principal)

== ENCOUNTER 2022-06-20 17:59 | Emergency (ER) | payer OTHER ==
[~2022-06-20] VITALS: Ht 175.3 cm; Wt 90.7 kg
[2022-06-20 18:46] VITALS: BP 158/104
[2022-06-20] MEDS ORDERED: IBUPROFEN 600 MG TABLET PO ONE (19:30)
[2022-06-20] MEDS ORDERED: IBUPROFEN 600 MG TABLET ONE (19:45)
[2022-06-20] MEDS ORDERED: CEPH500C2 PO (19:54)
[2022-06-20] MEDS ORDERED: IBUP-1955 PO (19:54)
--- NOTE | 2022-06-20 20:19 | NUR ---
Patient discharged to home in stable condition. Written and verbal after care instructions given. Patient verbalizes understanding of instruction.
[2022-06-20 21:19] LABS: BILIRUBIN,URINE NEGATIVE (NEGATIVE); COLOR,URINE YELLOW (YELLOW); LEUKOCYTE ESTERASE ,URINE 2+ (NEGATIVE); NITRITE, URINE POSITIVE (NEGATIVE); PROTEIN,URINE NEGATIVE (NEGATIVE); UGLUCOSE NEGATIVE (NEGATIVE); UROBILINOGEN,URINE 0.2 EU/dL (0.2)
[2022-06-20 21:26] LABS: BACTERIA,URINE 2+ /HPF (None Seen); WBC,URINE 21-50 /HPF (0-3)
== END 2022-06-20 20:20 | disposition home or self-care (01) ==
LOC: ER 18:09
DX: L03.114 Cellulitis of left upper limb (principal); M25.532 Pain in left wrist; F32.A Depression, unspecified; Z88.6 Allergy status to analgesic agent; Z88.8 Allergy status to other drugs, medicaments and biological substances; Z79.899 Other long term (current) drug therapy
CPT/HCPCS: 73110; 81001; 87086-TC

== ENCOUNTER 2022-08-28 23:52 | Emergency (ER) | payer OTHER ==
[~2022-08-28] VITALS: Ht 177.8 cm; Wt 68.0 kg
[2022-08-29 00:50] VITALS: BP 102/85
[2022-08-29] MEDS ORDERED: LIDO30AD10 TP (01:05)
[2022-08-29] MEDS ORDERED: IBUP-1955 PO (01:05)
[2022-08-29] MEDS: KETOROLAC TROMETHAMINE INJ 30 MG/ML VIAL IM ONE ×2 (01:06→01:08)
[2022-08-29] MEDS ORDERED: KETOROLAC TROMETHAMINE INJ 30 MG/ML VIAL ONE (01:07)
[2022-08-29] MEDS ORDERED: LIDOCAINE 5% (PATCH) 1 EA PATCH TP ONE (01:30)
== END 2022-08-29 02:38 | disposition home or self-care (01) ==
LOC: ER 23:55
DX: G44.209 Tension-type headache, unspecified, not intractable (principal); M54.2 Cervicalgia; F32.A Depression, unspecified; Z59.00 Homelessness unspecified; Z79.899 Other long term (current) drug therapy; Z88.1 Allergy status to other antibiotic agents
CPT/HCPCS: 99283; 96372; J1885

== ENCOUNTER 2022-09-04 00:10 | Emergency (ER) | payer OTHER ==
[~2022-09-04] VITALS: Ht 177.8 cm; Wt 74.8 kg
[~2022-09-04 00:10] MED LIST changes: +LIDO30AD10 TP
[2022-09-04 00:26] VITALS: BP 138/75
--- NOTE | 2022-09-04 02:04 | NUR ---
Patient discharged to home in stable condition. Written and verbal after care instructions given. Patient verbalizes understanding of instruction.
== END 2022-09-04 02:03 | disposition home or self-care (01) ==
LOC: ER 00:13
DX: S90.821A Blister (nonthermal), right foot, initial encounter (principal); F32.A Depression, unspecified; Z98.86 Personal history of breast implant removal; Z88.8 Allergy status to other drugs, medicaments and biological substances; Z59.00 Homelessness unspecified; Z79.899 Other long term (current) drug therapy; X58.XXXA Exposure to other specified factors, initial encounter; Y93.89 Activity, other specified; Y92.89 Other specified places as the place of occurrence of the external cause; Y99.8 Other external cause status

== ENCOUNTER 2022-09-09 17:52 | Emergency (ER) | payer OTHER ==
[~2022-09-09] VITALS: Ht 177.8 cm; Wt 67.1 kg
[2022-09-09 18:20] VITALS: BP 137/68
--- NOTE | 2022-09-09 18:26 | NUR ---
Patient AOx4 able to express her concerns. Patient states she lost her job and due to that she she has been walking more than usual. States she does not have money to buy band-aids. Discussed plan of care, patient verbalized understanding All safety precautions taken.
[2022-09-09] MEDS ORDERED: NEOM28OI22 TP (18:52)
[2022-09-09] MEDS ORDERED: IBUPROFEN 600 MG TABLET PO ONE (19:00)
[2022-09-09] MEDS ORDERED: IBUPROFEN 600 MG TABLET ONE (19:03)
== END 2022-09-09 19:27 | disposition home or self-care (01) ==
LOC: ER 17:59
DX: S90.822A Blister (nonthermal), left foot, initial encounter (principal); F32.A Depression, unspecified; Z98.890 Other specified postprocedural states; Z59.00 Homelessness unspecified; Z79.899 Other long term (current) drug therapy; Z88.1 Allergy status to other antibiotic agents; X58.XXXA Exposure to other specified factors, initial encounter; Y93.89 Activity, other specified; Y92.89 Other specified places as the place of occurrence of the external cause; Y99.8 Other external cause status

== ENCOUNTER 2022-09-25 01:15 | Emergency (ER) | payer OTHER ==
[~2022-09-25] VITALS: Ht 182.9 cm; Wt 70.3 kg
[~2022-09-25 01:15] MED LIST changes: +NEOM28OI22 TP
[2022-09-25 01:25] VITALS: BP 141/76
--- NOTE | 2022-09-25 01:25 | NUR ---
BIBSELF C/O "GETTING COLD OUTSIDE, FINDING IT HARD TO BREATH" AND "BILSTER ON FEET" FROM WALKING ALL DAY. SATTING 100% R/A
--- NOTE | 2022-09-25 02:02 | NUR ---
Patient discharged to home in stable condition. Written and verbal after care instructions given. Patient verbalizes understanding of instruction.
== END 2022-09-25 02:05 | disposition home or self-care (01) ==
LOC: ER 01:16
DX: F32.A Depression, unspecified (principal); Z59.00 Homelessness unspecified; Z79.899 Other long term (current) drug therapy; Z88.1 Allergy status to other antibiotic agents; Z88.5 Allergy status to narcotic agent

== ENCOUNTER 2022-12-22 20:24 | Emergency (ER) | payer OTHER ==
[~2022-12-22] VITALS: Ht 177.8 cm; Wt 72.6 kg
[~2022-12-22 20:24] MED LIST changes: +PERM60CR6 TP
[2022-12-22 20:41] VITALS: TEMP 98.5
[2022-12-22] MEDS ORDERED: IBUPROFEN 600 MG TABLET PO ONE (21:30)
[2022-12-22] MEDS ORDERED: IBUPROFEN 600 MG TABLET ONE (21:38)
[2022-12-22 21:49] LABS: APPEARANCE,URINE CLOUDY (CLEAR); BILIRUBIN,URINE NEGATIVE (NEGATIVE); BLOOD, URINE TRACE-INTA Ery/uL (NEGATIVE); COLOR,URINE YELLOW (YELLOW); KETONES,URINE TRACE mg/dL (NEGATIVE); LEUKOCYTE ESTERASE ,URINE NEGATIVE (NEGATIVE); NITRITE, URINE POSITIVE (NEGATIVE); PROTEIN,URINE NEGATIVE (NEGATIVE); UGLUCOSE NEGATIVE (NEGATIVE); UROBILINOGEN,URINE 0.2 EU/dL (0.2)
[2022-12-22 21:56] LABS: PREGNANCY TEST URINE QUAL NEGATIVE (NEGATIVE)
[2022-12-22 22:15] LABS: ADD URINE CULTURE YES; BACTERIA,URINE Few /HPF (None Seen); RBC,URINE 0-2 /HPF (0-2); SQUAMOUS EPITHELIAL CELL,UR Rare /HPF (None Seen)
[2022-12-22] MEDS ORDERED: CEPH500C2 PO (23:40)
[2022-12-23] MEDS ORDERED: CEPHALEXIN MONOHYDRATE 500 MG CAPSULE PO ONE
[2022-12-23 00:57] VITALS: BP 114/69; O2SAT 99
[2022-12-27 03:06] LABS: CHLAMYDIA TRACHOMATIS NAA Negative (Negative); NEISSERIA GONORRHOEAE NAA Negative (Negative)
== END 2022-12-23 00:58 | disposition home or self-care (01) ==
LOC: ER 20:31
DX: L73.1 Pseudofolliculitis barbae (principal); N39.0 Urinary tract infection, site not specified; M79.672 Pain in left foot; M79.671 Pain in right foot; F32.A Depression, unspecified; Z79.899 Other long term (current) drug therapy; Z59.00 Homelessness unspecified; Z88.5 Allergy status to narcotic agent; Z88.1 Allergy status to other antibiotic agents
CPT/HCPCS: 81001; 84703-TC; 87086-TC; 87491; 87591

== ENCOUNTER 2023-02-26 06:38 | Emergency (ER) | payer OTHER | END 2023-02-26 06:52 | disposition left against medical advice (07) | LOC: ER 06:38 | DX: K62.89 Other specified diseases of anus and rectum (principal); Z53.21 Procedure and treatment not carried out due to patient leaving prior to being seen by health care provider ==

== ENCOUNTER 2023-04-19 09:52 | Emergency (ER) | payer OTHER ==
[~2023-04-19] VITALS: Ht 177.8 cm; Wt 68.0 kg
[2023-04-19 10:01] VITALS: BP 150/92; TEMP 97.9; O2SAT 100
[2023-04-19] MEDS ORDERED: HYDR453.3 TP (12:04)
== END 2023-04-19 12:35 | disposition home or self-care (01) ==
LOC: ER 09:52
DX: R21 Rash and other nonspecific skin eruption (principal); Z79.899 Other long term (current) drug therapy; Z88.1 Allergy status to other antibiotic agents; Z88.5 Allergy status to narcotic agent

== ENCOUNTER 2023-08-17 17:08 | Emergency (ER) | payer OTHER ==
[~2023-08-17 17:08] MED LIST changes: +HYDR453.3 TP
[2023-08-18] MEDS ORDERED: CEPH500C2 PO (10:20)
[2023-08-18] MEDS ORDERED: SERT25TA PO (10:20)
== END 2023-08-17 19:10 | disposition left against medical advice (07) ==
LOC: ER 17:16
DX: G50.1 Atypical facial pain (principal); Z53.21 Procedure and treatment not carried out due to patient leaving prior to being seen by health care provider

== ENCOUNTER 2023-08-18 10:09 | Emergency (ER) | payer OTHER ==
[~2023-08-18] VITALS: Ht 177.8 cm; Wt 75.3 kg
[2023-08-18 10:18] VITALS: BP 117/75; TEMP 98.6
[2023-08-18] MEDS ORDERED: CEPH500C2 PO (10:20)
[2023-08-18] MEDS ORDERED: SERT25TA PO (10:20)
[2023-08-18 10:27] VITALS: O2SAT 98
== END 2023-08-18 10:29 | disposition home or self-care (01) ==
LOC: ER 10:16
DX: L01.00 Impetigo, unspecified (principal); Z76.0 Encounter for issue of repeat prescription; F32.A Depression, unspecified; Z88.6 Allergy status to analgesic agent

== ENCOUNTER → 2023-10-12 | Emergency (ER) | payer OTHER ==
[~2023-10-12] VITALS: Ht 177.8 cm; Wt 72.6 kg
[~2023-10-12] MED LIST changes: +SILV20CR13 TP
[2023-10-12 16:17] VITALS: BP 135/84; TEMP 98.1; O2SAT 98
[2023-10-12] MEDS: SILVER SULFADIAZINE CREAM 25 GM TUBE TP ONE (16:42)
[2023-10-12] MEDS: IBUPROFEN 600 MG TABLET PO ONE (16:42)
== END | disposition home or self-care (01) ==
LOC: ER 15:56
DX: S90.821A Blister (nonthermal), right foot, initial encounter (principal); F32.A Depression, unspecified; F19.10 Other psychoactive substance abuse, uncomplicated; Z88.6 Allergy status to analgesic agent; Z88.8 Allergy status to other drugs, medicaments and biological substances; X58.XXXA Exposure to other specified factors, initial encounter; Y93.89 Activity, other specified; Y92.89 Other specified places as the place of occurrence of the external cause; Y99.8 Other external cause status

== ENCOUNTER 2023-12-09 12:13 | Emergency (ER) | payer OTHER ==
[~2023-12-09] VITALS: Ht 177.8 cm; Wt 70.8 kg
[2023-12-09 12:19] VITALS: BP 127/92; TEMP 98.6
[2023-12-09] MEDS ORDERED: IBUPROFEN 600 MG TABLET ONE (12:34)
[2023-12-09] MEDS: IBUPROFEN 600 MG TABLET PO ONE (12:40)
[2023-12-09 12:53] VITALS: O2SAT 96
== END 2023-12-09 12:53 | disposition home or self-care (01) ==
LOC: ER 12:13
DX: G44.209 Tension-type headache, unspecified, not intractable (principal); F32.A Depression, unspecified; Z98.890 Other specified postprocedural states; Z79.899 Other long term (current) drug therapy; Z79.1 Long term (current) use of non-steroidal anti-inflammatories (NSAID); Z88.5 Allergy status to narcotic agent

== ENCOUNTER 2024-01-04 18:13 | Emergency (ER) | payer OTHER ==
[~2024-01-04] VITALS: Ht 177.8 cm; Wt 70.3 kg
[2024-01-04 18:25] VITALS: BP 161/78; TEMP 97.9; O2SAT 99
--- NOTE | 2024-01-04 19:00 | NUR ---
" my urine smells bad and it hurts when i pee "
[2024-01-04 19:18] LABS: APPEARANCE,URINE SLIGHTLY CLOUDY (CLEAR); BILIRUBIN,URINE NEGATIVE (NEGATIVE); BLOOD, URINE NEGATIVE Ery/uL (NEGATIVE); COLOR,URINE YELLOW (YELLOW); KETONES,URINE NEGATIVE (NEGATIVE); LEUKOCYTE ESTERASE ,URINE NEGATIVE (NEGATIVE); NITRITE, URINE POSITIVE (NEGATIVE); PROTEIN,URINE NEGATIVE (NEGATIVE); UGLUCOSE NEGATIVE (NEGATIVE)
[2024-01-04] MEDS ORDERED: CEPH-570 PO (19:31)
[2024-01-04] MEDS ORDERED: SERT25TA PO (19:31)
--- NOTE | 2024-01-04 19:36 | NUR ---
Patient discharged to home in stable condition. Written and verbal after care instructions given. Patient verbalizes understanding of instruction.
[2024-01-04 20:30] LABS: ADD URINE CULTURE YES; BACTERIA,URINE 3+ /HPF (None Seen); CALCIUM OXALATE CRYSTALS,UR Few /HPF (None Seen)
== END 2024-01-04 19:38 | disposition home or self-care (01) ==
LOC: ER 18:14
DX: M79.672 Pain in left foot (principal); M79.671 Pain in right foot; N39.0 Urinary tract infection, site not specified; Z76.0 Encounter for issue of repeat prescription; F32.A Depression, unspecified; Z98.890 Other specified postprocedural states; Z79.899 Other long term (current) drug therapy; Z79.1 Long term (current) use of non-steroidal anti-inflammatories (NSAID); Z88.5 Allergy status to narcotic agent
CPT/HCPCS: 81001

== ENCOUNTER 2024-02-22 20:13 | Emergency (ER) | payer OTHER ==
[~2024-02-22 20:13] MED LIST changes: +CEPH-570 PO
== END 2024-02-22 21:51 | disposition left against medical advice (07) ==
LOC: ER 20:20
DX: L08.9 Local infection of the skin and subcutaneous tissue, unspecified (principal); Z53.21 Procedure and treatment not carried out due to patient leaving prior to being seen by health care provider

== ENCOUNTER 2024-03-18 13:21 | Emergency (ER) | payer OTHER ==
[~2024-03-18] VITALS: Ht 170.2 cm; Wt 70.3 kg
[2024-03-18 13:37] VITALS: BP 128/79; TEMP 98.2
[2024-03-18] MEDS ORDERED: CEPH-570 PO (14:28)
[2024-03-18] MEDS ORDERED: SULF1TAB48 PO (14:28)
[2024-03-18] MEDS ORDERED: IBUP-1490 PO (14:32)
[2024-03-18 15:32] LABS: PREGNANCY TEST URINE QUAL NEGATIVE (NEGATIVE)
[2024-03-18 15:56] VITALS: O2SAT 100
== END 2024-03-18 15:55 | disposition home or self-care (01) ==
LOC: ER 13:24
DX: L03.317 Cellulitis of buttock (principal); F32.A Depression, unspecified; F14.10 Cocaine abuse, uncomplicated; Z79.1 Long term (current) use of non-steroidal anti-inflammatories (NSAID); Z79.899 Other long term (current) drug therapy; Z88.5 Allergy status to narcotic agent; Z59.00 Homelessness unspecified
CPT/HCPCS: 84703-TC

== ENCOUNTER 2024-04-04 20:19 | Emergency (ER) | payer OTHER ==
[~2024-04-04] VITALS: Ht 177.8 cm; Wt 70.3 kg
[~2024-04-04 20:19] MED LIST changes: +IBUP-1490 PO; +SULF1TAB48 PO
[2024-04-04] MEDS ORDERED: CEFTRIAXONE 1 G VIAL ONE (20:59)
[2024-04-04] MEDS ORDERED: IBUPROFEN 600 MG TABLET ONE (21:00)
[2024-04-04] MEDS ORDERED: CLINDAMYCIN HCL 150 MG CAPSULE ONE (21:00)
[2024-04-04] MEDS ORDERED: LIDOCAINE 0.5% HCL 50 ML VIAL ONE (21:02)
[2024-04-04] MEDS ORDERED: LIDOCAINE /MPF 1% VIAL 5 ML VIAL ONE (21:03)
[2024-04-04] MEDS ORDERED: CLIN300C12 PO (21:10)
[2024-04-04] MEDS: CLINDAMYCIN HCL 150 MG CAPSULE PO ONE (21:12)
[2024-04-04] MEDS: IBUPROFEN 600 MG TABLET PO ONE (21:12)
[2024-04-04] MEDS: CEFTRIAXONE 1 G VIAL IM ONE (21:12)
[2024-04-04 21:25] VITALS: BP 131/87; TEMP 98; O2SAT 100
== END 2024-04-04 21:26 | disposition home or self-care (01) ==
LOC: ER 20:24
DX: L03.317 Cellulitis of buttock (principal); F32.A Depression, unspecified; Z79.1 Long term (current) use of non-steroidal anti-inflammatories (NSAID); Z79.899 Other long term (current) drug therapy; Z88.5 Allergy status to narcotic agent
CPT/HCPCS: 99283; 96372; J0696; J3490

== ENCOUNTER 2024-06-23 11:21 | Emergency (ER) | payer OTHER ==
[~2024-06-23] VITALS: Ht 177.8 cm; Wt 68.0 kg
[~2024-06-23 11:21] MED LIST changes: +CLIN300C12 PO
[2024-06-23 11:41] VITALS: BP 137/86; TEMP 97.8
[2024-06-23 11:59] VITALS: O2SAT 98
== END 2024-06-23 12:00 | disposition home or self-care (01) ==
LOC: ER 11:27
DX: L03.317 Cellulitis of buttock (principal); F32.A Depression, unspecified; Z79.1 Long term (current) use of non-steroidal anti-inflammatories (NSAID); Z79.899 Other long term (current) drug therapy; Z88.5 Allergy status to narcotic agent

== ENCOUNTER 2024-07-22 16:01 | Emergency (ER) | payer OTHER ==
[~2024-07-22] VITALS: Ht 177.8 cm; Wt 70.3 kg
[2024-07-22 16:23] VITALS: BP 156/87; TEMP 98.3
[2024-07-22] MEDS ORDERED: MUPI15CR TP (16:48)
[2024-07-22] MEDS ORDERED: SERT25TA PO (16:48)
[2024-07-22 17:22] VITALS: O2SAT 98
[2024-07-22 17:27] LABS: APPEARANCE,URINE CLEAR (CLEAR); BILIRUBIN,URINE NEGATIVE (NEGATIVE); BLOOD, URINE NEGATIVE Ery/uL (NEGATIVE); COLOR,URINE YELLOW (YELLOW); KETONES,URINE NEGATIVE (NEGATIVE); LEUKOCYTE ESTERASE ,URINE NEGATIVE (NEGATIVE); NITRITE, URINE POSITIVE (NEGATIVE); PH,URINE 5.5 (5.0-8.0); PROTEIN,URINE NEGATIVE (NEGATIVE); UGLUCOSE NEGATIVE (NEGATIVE); UROBILINOGEN,URINE 0.2 EU/dL (0.2)
[2024-07-22 17:44] LABS: ADD URINE CULTURE YES; BACTERIA,URINE Few /HPF (None Seen); CALCIUM OXALATE CRYSTALS,UR Moderate /HPF (None Seen); RBC,URINE 0-2 /HPF (0-2); SQUAMOUS EPITHELIAL CELL,UR Few /HPF (None Seen)
[2024-07-22] MEDS ORDERED: CEPH-570 PO (19:52)
== END 2024-07-22 17:23 | disposition home or self-care (01) ==
LOC: ER 16:04
DX: L84 Corns and callosities (principal); F32.A Depression, unspecified; F41.9 Anxiety disorder, unspecified; Z79.1 Long term (current) use of non-steroidal anti-inflammatories (NSAID); Z79.899 Other long term (current) drug therapy; Z87.440 Personal history of urinary (tract) infections; Z88.5 Allergy status to narcotic agent
CPT/HCPCS: 81001

== ENCOUNTER 2024-10-02 21:37 | Emergency (ER) | payer OTHER ==
[~2024-10-02 21:37] MED LIST changes: +MUPI15CR TP
== END 2024-10-02 23:37 | disposition left against medical advice (07) ==
LOC: ER 21:42
DX: M25.519 Pain in unspecified shoulder (principal); Z53.21 Procedure and treatment not carried out due to patient leaving prior to being seen by health care provider

== ENCOUNTER 2024-11-09 17:36 | Emergency (ER) | payer OTHER ==
[~2024-11-09] VITALS: Ht 177.8 cm; Wt 70.3 kg
[2024-11-09 18:01] VITALS: BP 117/84; TEMP 98
[2024-11-09 18:45] VITALS: O2SAT 98
== END 2024-11-09 18:47 | disposition home or self-care (01) ==
LOC: ER 17:36
DX: L98.9 Disorder of the skin and subcutaneous tissue, unspecified (principal); R22.0 Localized swelling, mass and lump, head; J34.89 Other specified disorders of nose and nasal sinuses; R21 Rash and other nonspecific skin eruption; F32.A Depression, unspecified; Z79.1 Long term (current) use of non-steroidal anti-inflammatories (NSAID); Z79.899 Other long term (current) drug therapy; Z88.5 Allergy status to narcotic agent; Z59.00 Homelessness unspecified

== ENCOUNTER 2024-11-21 18:16 | Emergency (ER) | payer OTHER ==
[~2024-11-21] VITALS: Ht 177.8 cm; Wt 72.6 kg
[2024-11-21 19:42] LABS: APPEARANCE,URINE CLEAR (CLEAR); BLOOD, URINE Trace-intact Ery/uL (NEGATIVE); LEUKOCYTE ESTERASE ,URINE Negative (NEGATIVE); UGLUCOSE Negative (NEGATIVE)
[2024-11-21 19:46] LABS: ADD URINE CULTURE NO; NITRITE, URINE NEGATIVE (NEGATIVE); SQUAMOUS EPITHELIAL CELL,UR Few /HPF (None Seen)
[2024-11-21] MEDS ORDERED: METR500T PO (20:03)
[2024-11-21] MEDS ORDERED: SERT20OR6 PO (20:05)
[2024-11-21 20:46] VITALS: BP 144/88; TEMP 98.3; O2SAT 100
== END 2024-11-21 20:00 | disposition home or self-care (01) ==
LOC: ER 18:27
DX: N89.8 Other specified noninflammatory disorders of vagina (principal); R82.90 Unspecified abnormal findings in urine; N39.3 Stress incontinence (female) (male); F32.A Depression, unspecified; Z59.00 Homelessness unspecified; Z79.1 Long term (current) use of non-steroidal anti-inflammatories (NSAID); Z79.899 Other long term (current) drug therapy; Z88.5 Allergy status to narcotic agent
CPT/HCPCS: 81001

== ENCOUNTER 2024-11-23 23:55 | Emergency (ER) | payer OTHER ==
[~2024-11-23] VITALS: Ht 177.8 cm; Wt 72.6 kg
[~2024-11-23 23:55] MED LIST changes: +METR500T PO; +SERT20OR6 PO
[2024-11-24] MEDS ORDERED: KETOROLAC TROMETHAMINE INJ 30 MG/ML VIAL ONE (03:14)
[2024-11-24 03:29] LABS: APPEARANCE,URINE CLEAR (CLEAR); BLOOD, URINE NEGATIVE Ery/uL (NEGATIVE); LEUKOCYTE ESTERASE ,URINE TRACE (NEGATIVE); NITRITE, URINE NEGATIVE (NEGATIVE); UGLUCOSE NEGATIVE (NEGATIVE)
[2024-11-24 03:34] LABS: ADD URINE CULTURE NO; SQUAMOUS EPITHELIAL CELL,UR Few /HPF (None Seen)
[2024-11-24 03:37] LABS: PREGNANCY TEST URINE QUAL NEGATIVE (NEGATIVE)
[2024-11-24 03:43] LABS: AMPHETAMINE, URINE NEGATIVE (NEGATIVE); BARBITURATE, URINE NEGATIVE (NEGATIVE); BENZODIAZEPINE, URINE NEGATIVE (NEGATIVE); CANNABINOID, URINE NEGATIVE (NEGATIVE); COCCAINE, URINE NEGATIVE (NEGATIVE); OPIATE, URINE NEGATIVE (NEGATIVE)
[2024-11-24] MEDS: KETOROLAC TROMETHAMINE INJ 30 MG/ML VIAL IM ONE (03:43)
[2024-11-24] MEDS ORDERED: NAPR-1164 PO (04:04)
[2024-11-24 05:00] VITALS: BP 135/89; TEMP 98; O2SAT 99
[2024-11-25] MEDS ORDERED: ALBU8.5H8 INH (23:45)
[2024-11-25] MEDS ORDERED: IBUP-1490 PO (23:45)
== END 2024-11-24 05:03 | disposition home or self-care (01) ==
LOC: ER 23:59
DX: M25.551 Pain in right hip (principal); F32.A Depression, unspecified; Z59.00 Homelessness unspecified; Z79.1 Long term (current) use of non-steroidal anti-inflammatories (NSAID); Z79.899 Other long term (current) drug therapy; Z88.5 Allergy status to narcotic agent
CPT/HCPCS: 99284; 96372; 73502; 84703; 80307; 81001; J1885

== ENCOUNTER 2024-11-25 21:43 | Emergency (ER) | payer OTHER ==
[~2024-11-25] VITALS: Ht 177.8 cm; Wt 70.3 kg
[~2024-11-25 21:43] MED LIST changes: +NAPR-1164 PO
[2024-11-25] MEDS ORDERED: IBUPROFEN 600 MG TABLET ONE (23:03)
[2024-11-25] MEDS ORDERED: ALBUTEROL FS 2.5 MG/3 ML VIAL.NEB ONE (23:11)
[2024-11-25] MEDS ORDERED: IPRATROPIUM NEB FS 0.5 MG/2.5 ML AMPUL.NEB ONE (23:11)
[2024-11-25] MEDS: IBUPROFEN 600 MG TABLET PO ONE (23:11)
[2024-11-25] MEDS: IPRATROPIUM NEB FS 0.5 MG/2.5 ML AMPUL.NEB NEB ONE (23:20)
[2024-11-25] MEDS: ALBUTEROL FS 2.5 MG/3 ML VIAL.NEB NEB ONE (23:20)
[2024-11-25 23:21] VITALS: O2SAT 97
[2024-11-25 23:36] VITALS: O2SAT 100
[2024-11-25] MEDS ORDERED: ALBU8.5H8 INH (23:45)
[2024-11-25] MEDS ORDERED: IBUP-1490 PO (23:45)
[2024-11-26 00:11] VITALS: BP 155/92; TEMP 98; O2SAT 100
== END 2024-11-26 00:11 | disposition home or self-care (01) ==
LOC: ER 21:43
DX: J39.9 Disease of upper respiratory tract, unspecified (principal); F32.A Depression, unspecified; Z59.00 Homelessness unspecified; Z79.1 Long term (current) use of non-steroidal anti-inflammatories (NSAID); Z79.899 Other long term (current) drug therapy; Z88.5 Allergy status to narcotic agent

== ENCOUNTER 2024-12-01 22:20 | Emergency (ER) | payer OTHER ==
[~2024-12-01] VITALS: Ht 177.8 cm; Wt 70.3 kg
[~2024-12-01 22:20] MED LIST changes: +ALBU8.5H8 INH
[2024-12-02] MEDS: ONDANSETRON 4 MG TAB.RAPDIS SL ONE (00:09)
[2024-12-02] MEDS ORDERED: ONDANSETRON 4 MG TAB.RAPDIS ONE (00:09)
[2024-12-02 00:11] VITALS: BP 132/70; TEMP 97.8; O2SAT 99
== END 2024-12-02 00:12 | disposition home or self-care (01) ==
LOC: ER 22:29
DX: Z76.5 Malingerer [conscious simulation] (principal); F32.A Depression, unspecified; Z59.00 Homelessness unspecified; Z79.1 Long term (current) use of non-steroidal anti-inflammatories (NSAID); Z79.899 Other long term (current) drug therapy; Z88.5 Allergy status to narcotic agent
CPT/HCPCS: 99283; Q0162

== ENCOUNTER 2025-01-05 20:08 | Emergency (ER) | payer OTHER ==
[~2025-01-05] VITALS: Ht 177.8 cm; Wt 74.8 kg
[2025-01-05 20:18] VITALS: BP 131/77; TEMP 98.2; O2SAT 98
[2025-01-05] MEDS ORDERED: DIPH25CA83 PO (20:40)
[2025-01-05] MEDS ORDERED: IBUP-1953 PO (20:40)
[2025-01-05] MEDS ORDERED: MUPI1OIN5 TP (20:40)
[2025-01-05] MEDS ORDERED: ALOE237G TP (20:40)
[2025-01-05] MEDS ORDERED: IBUPROFEN 400 MG TABLET ONE (20:50)
[2025-01-05] MEDS: IBUPROFEN 400 MG TABLET PO ONE (20:53)
== END 2025-01-05 20:58 | disposition home or self-care (01) ==
LOC: ER 20:11
DX: L55.0 Sunburn of first degree (principal); F22 Delusional disorders; F32.A Depression, unspecified; Z59.00 Homelessness unspecified; Z79.1 Long term (current) use of non-steroidal anti-inflammatories (NSAID); Z79.899 Other long term (current) drug therapy; Z88.5 Allergy status to narcotic agent; Z60.2 Problems related to living alone
CPT/HCPCS: 99283; Q0163

== ENCOUNTER 2025-01-27 02:28 | Emergency (ER) | payer OTHER ==
[~2025-01-27] VITALS: Ht 177.8 cm; Wt 70.3 kg
[~2025-01-27 02:28] MED LIST changes: +ALOE237G TP; +DIPH25CA83 PO; +IBUP-1953 PO; +MUPI1OIN5 TP
[2025-01-27 04:21] LABS: APPEARANCE,URINE CLEAR (CLEAR); BLOOD, URINE NEGATIVE Ery/uL (NEGATIVE); LEUKOCYTE ESTERASE ,URINE NEGATIVE (NEGATIVE); NITRITE, URINE NEGATIVE (NEGATIVE); UGLUCOSE NEGATIVE (NEGATIVE)
[2025-01-27 04:22] LABS: PREGNANCY TEST URINE QUAL NEGATIVE (NEGATIVE)
[2025-01-27 04:29] LABS: AMPHETAMINE, URINE NEGATIVE (NEGATIVE); BARBITURATE, URINE NEGATIVE (NEGATIVE); BENZODIAZEPINE, URINE NEGATIVE (NEGATIVE); CANNABINOID, URINE NEGATIVE (NEGATIVE); COCCAINE, URINE NEGATIVE (NEGATIVE); OPIATE, URINE NEGATIVE (NEGATIVE)
[2025-01-27] MEDS ORDERED: KETOROLAC TROMETHAMINE INJ 30 MG/ML VIAL ONE (05:51)
[2025-01-27] MEDS: KETOROLAC TROMETHAMINE INJ 30 MG/ML VIAL IM ONE (05:55)
[2025-01-27 06:03] LABS: CALCIUM, SERUM 8.7 mg/dL (8.5-10.1); CREATININE 0.7 mg/dL (0.6-1.3); SODIUM SERUM 141.0 mmol/L (136-145); UREA NITROGEN, BLOOD 8.0 mg/dL (7-18)
[2025-01-27 06:09] LABS: ASPARTATE AMINOTRANSFERASE 20.0 U/L (15-37); TOTAL PROTEIN, SERUM 6.8 g/dL (6.4-8.2)
[2025-01-27] MEDS ORDERED: GABA-532 PO (06:16)
[2025-01-27] MEDS ORDERED: POTASSIUM CHLORIDE 20 MEQ TAB.PRT.SR PO ONE (06:35)
[2025-01-27] MEDS ORDERED: POTASSIUM CHLORIDE 10 MEQ TABLET.SA ONE (06:36)
[2025-01-27] MEDS: POTASSIUM CHLORIDE 10 MEQ TABLET.SA PO ONE (06:38)
[2025-01-27 06:39] VITALS: BP 138/89; TEMP 98.9; O2SAT 100
== END 2025-01-27 06:40 | disposition home or self-care (01) ==
LOC: ER 02:28
DX: R51.9 Headache, unspecified (principal); F32.A Depression, unspecified; F19.10 Other psychoactive substance abuse, uncomplicated; Z79.1 Long term (current) use of non-steroidal anti-inflammatories (NSAID); Z79.899 Other long term (current) drug therapy; Z88.5 Allergy status to narcotic agent; Z60.2 Problems related to living alone
CPT/HCPCS: 99285; 70450; 96372; 84703; 81003; 36415; 80053; 80307; J1885

== ENCOUNTER 2025-02-03 16:50 | Emergency (ER) | payer OTHER ==
[~2025-02-03] VITALS: Ht 177.8 cm; Wt 70.3 kg
[~2025-02-03 16:50] MED LIST changes: +GABA-532 PO
[2025-02-03 18:31] VITALS: BP 185/107; TEMP 97.7
[2025-02-03 21:01] LABS: APPEARANCE,URINE CLEAR (CLEAR); BLOOD, URINE NEGATIVE Ery/uL (NEGATIVE); LEUKOCYTE ESTERASE ,URINE NEGATIVE (NEGATIVE); NITRITE, URINE NEGATIVE (NEGATIVE); UGLUCOSE NEGATIVE (NEGATIVE)
[2025-02-03 21:02] LABS: PREGNANCY TEST URINE QUAL NEGATIVE (NEGATIVE)
[2025-02-03] MEDS ORDERED: TRIA80OI TP (21:20)
[2025-02-03 21:36] VITALS: O2SAT 97
== END 2025-02-03 21:37 | disposition home or self-care (01) ==
LOC: ER 18:06
DX: L29.9 Pruritus, unspecified (principal); F32.A Depression, unspecified; R32 Unspecified urinary incontinence; Z59.00 Homelessness unspecified; Z79.1 Long term (current) use of non-steroidal anti-inflammatories (NSAID); Z79.899 Other long term (current) drug therapy; Z88.5 Allergy status to narcotic agent
CPT/HCPCS: 84703-TC

== ENCOUNTER 2025-04-29 08:40 | Emergency (ER) | payer OTHER ==
[~2025-04-29] VITALS: Ht 177.8 cm; Wt 70.3 kg
[~2025-04-29 08:40] MED LIST changes: +TRIA80OI TP
[2025-04-29] MEDS ORDERED: PERM60CR6 TP (09:56)
[2025-04-29] MEDS ORDERED: CEPH500C2 PO (09:56)
[2025-04-29 10:15] VITALS: BP 135/87; TEMP 98.6; O2SAT 99
== END 2025-04-29 10:16 | disposition home or self-care (01) ==
LOC: ER 08:40
DX: L03.116 Cellulitis of left lower limb (principal); L03.115 Cellulitis of right lower limb; B86 Scabies; F32.A Depression, unspecified; Z59.00 Homelessness unspecified; Z79.1 Long term (current) use of non-steroidal anti-inflammatories (NSAID); Z79.899 Other long term (current) drug therapy; Z88.5 Allergy status to narcotic agent